=== PATIENT | female | born 2000 | race American Indian/Alaskan Native ===

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

== ENCOUNTER 2020-06-18 10:10 | Emergency (ER) | payer MEDICAID | END 2020-06-18 11:48 | disposition left against medical advice (07) | LOC: ED 10:10 | DX: M25.562 Pain in left knee (principal); Z53.21 Procedure and treatment not carried out due to patient leaving prior to being seen by health care provider ==

== ENCOUNTER 2021-10-16 09:09 | Emergency (ER) | payer MEDICAID, OTHER ==
[2021-10-16 09:56] VITALS: BP 109/73
[2021-10-16 10:35] LABS: HCG Qualitative,Urine Negative (Negative)
[2021-10-16 10:40] LABS: Bacteria,Urine 1+ /HPF (Negative); Bilirubin,Urine NEG (Negative); Blood,Urine LG (Negative); Color,Urine Amber (Yellow)
[2021-10-16] MEDS ORDERED: cefTRIAXone/NS 1 GM/50 ML 1 GM/50 ML BAG IV ONE (10:51)
[2021-10-16] MEDS ORDERED: SODIUM CHLORIDE 0.9% 1000 ML 1,000 ML IV ONE (10:51)
--- NOTE | 2021-10-16 11:15 | Emergency Department Report ---
ED Dysuria HPI - HPI Chief Complaint: Urogenital-Female Stated Complaint: DKS/UTI Time Seen by Provider: 10/16/21 09:58 Duration: 3 Days Location of Discomfort: Suprapubic Severity: Mild Symptoms: Dysuria: Yes, Frequency: Yes, Suprapubic Pain: No, Flank Pain: No, Fever: No, Hematuria: No, Abdominal Pain: No, Previous UTI's: Yes Other History: 20-year-old comes to the emergency room concerned that her blood sugar is high and with frequency/dysuria. No fever chills. No abdominal pain. No back pain. Patient is diabetic and blood glucose close was 130 on arrival to the ER. Patient is ambulatory, nonill nontoxic on exam ED Review of Systems ROS: Stated complaint: DKS/UTI Other details as noted in HPI Comment: All other systems reviewed and negative ED Past Medical Hx - Past Medical History Previous Medical History?: Yes Hx Diabetes: Yes Hx Asthma: Yes - Surgical History Hx Appendectomy: Yes Additional Surgical History: TONSILLECTOMY - Family History Family history: no significant - Social History Smoking Status: Never Smoker Substance Use Type: None - Medications Home Medications: Home Medications Medication Instructions Recorded Confirmed Last Taken Type Lantus 30 unit SUB-Q QDAY 11/18/14 11/18/14 Unknown History NovoLOG 100 UNITS/ML 11/18/14 11/18/14 11/18/14 08:00 History Dysuria Exam - Exam General: Vital signs noted. No distress. Alert and acting appropriately. Exam: Yes Moist Mucous Membranes, No CVA Tenderness, No Abdominal Tenderness, No Rigidity or Guarding Labs: Lab Results 10/16/21 Range/Units Unknown Urine Color [place] (Yellow) Urine Turbidity Slightly-cloudy (Clear) Urine pH 5.0 (5.0-7.0) Ur Specific Norris 1.017 (1.003-1.030) Urine Protein 100 mg/dl (Negative) mg/dL Urine Glucose (UA) 50 (Negative) mg/dL Urine Ketones 20 (Negative) mg/dL Urine Blood Lg (Negative) Urine Nitrite Pos (Negative) Ur Reducing Substances Not Reportable Urine Bilirubin Neg (Negative) Urine Ictotest Not Reportable Urine Urobilinogen 4.0 (<2.0) mg/dL Ur Leukocyte Esterase Lg (Negative) Urine WBC (Auto) 138.0 H (0.0-6.0) /HPF Urine RBC (Auto) 47.0 (0.0-6.0) /HPF U Epithel Cells (Auto) 11.0 (0-13.0) /HPF Urine Bacteria (Auto) 1+ (Negative) /HPF Urine WBC Clumps Few /HPF Urine HCG, Qual Negative (Negative) ED Course Vital Signs 10/16/21 09:55 Temperature 99.0 F Pulse Rate 104 H Respiratory 18 Rate Blood Pressure 109/73 O2 Sat by Pulse 100 Oximetry ED Medical Decision Making - Medical Decision Making Vital Signs 10/16/21 09:55 Temperature 99.0 F Pulse Rate 104 H Respiratory 18 Rate Blood Pressure 109/73 O2 Sat by Pulse 100 Oximetry Lab Results 10/16/21 Range/Units Unknown Urine Color [place] (Yellow) Urine Turbidity Slightly-cloudy (Clear) Urine pH 5.0 (5.0-7.0) Ur Specific Norris 1.017 (1.003-1.030) Urine Protein 100 mg/dl (Negative) mg/dL Urine Glucose (UA) 50 (Negative) mg/dL Urine Ketones 20 (Negative) mg/dL Urine Blood Lg (Negative) Urine Nitrite Pos (Negative) Ur Reducing Substances Not Reportable Urine Bilirubin Neg (Negative) Urine Ictotest Not Reportable Urine Urobilinogen 4.0 (<2.0) mg/dL Ur Leukocyte Esterase Lg (Negative) Urine WBC (Auto) 138.0 H (0.0-6.0) /HPF Urine RBC (Auto) 47.0 (0.0-6.0) /HPF U Epithel Cells (Auto) 11.0 (0-13.0) /HPF Urine Bacteria (Auto) 1+ (Negative) /HPF Urine WBC Clumps Few /HPF Urine HCG, Qual Negative (Negative) BG 130 1100 LEFT ER BEFORE DISPO GIVEN Critical care attestation.: If time is entered above; I have spent that time in minutes in the direct care of this critically ill patient, excluding procedure time. ED Disposition Clinical Impression: Dysuria Disposition: 07 LEFT AWOL/ELOPED Is pt being admited?: No Does the pt Need Aspirin: No Condition: Stable Time of Disposition: 11:40
== END 2021-10-16 14:48 | disposition left against medical advice (07) ==
LOC: ED 09:09
DX: R30.0 Dysuria (principal); E11.9 Type 2 diabetes mellitus without complications; J45.909 Unspecified asthma, uncomplicated; Z98.890 Other specified postprocedural states
CPT/HCPCS: 81001; 81025; 82962; 99283; J0696; J7030; Q0162